=== PATIENT | female | born 1995 | race Caucasian/White ===

== ENCOUNTER → 2016-12-20 | Outpatient (CLI) | payer BC, OTHER ==
--- NOTE | 2016-12-20 11:28 | DIAGNOSTIC IMAGING REPORT ---
RIGHT KNEE 4 OR MORE CLINICAL HISTORY: RIGHT KNEE IT BAND SYNDROME. COMPARISON: None FINDINGS: Alignment of the right knee is anatomic. There is no fracture or suspicious lesion. Joint spaces are preserved. There is a possible right knee joint effusion. IMPRESSION: 1. No osseous abnormality of the right knee. 2. Possible right knee joint effusion. Electronically signed by: Yvan Brito M.D. 12/20/2016 11:26 AM Dictated Date/Time: 12/20/2016 11:26 AM
== END | disposition home or self-care (01) ==
LOC: C.RDSM 10:46
PROVIDERS: ATTEND Internal Medicine
DX: M76.31 Iliotibial band syndrome, right leg (principal)

== ENCOUNTER → 2016-12-31 | Outpatient (CLI) | payer BC, OTHER ==
--- NOTE | 2016-12-31 08:13 | DIAGNOSTIC IMAGING REPORT ---
RIGHT LOWER EXT NONJOINT W/O HISTORY: 21 years-old Female acute posterior lateral leg pain, most pronounced in the region of the hamstring. No reported trauma. COMPARISON: Right knee radiographs 12/20/2016 TECHNIQUE: Multiplanar multisequence MRI of the right femur was obtained without contrast. FINDINGS: The exam is very limited secondary to patient motion. There is a moderate amount of free fluid within the cul-de-sac, likely physiologic. There is a mild amount of edema adjacent to the right greater trochanter, nicely seen on image 18 of the coronal STIR series compatible with greater trochanteric bursitis. No significant right hip degenerative changes. No labral tear is identified, however evaluation is limited secondary to patient motion. There is a small fluid-filled cleft measuring 6 x 5 mm in transverse and AP dimension involving the gluteus medius tendon attachment site as seen on image 19 of series 7 and image 8 of series 9 suggesting low-grade partial thickness tear. There is mild thickening of the common hamstring attachment site without high-grade or full-thickness tear or significant surrounding edema identified compatible with tendinosis. There is no evidence of ischiofemoral impingement. Normal vascularity is seen within the mid femoral shaft without focal bone marrow edema or fracture. No stress response or mass is identified. Physiologic amount of fluid is seen within the knee joint. This exam is not tailored to evaluate the knee ligaments, tendons or menisci. No focal soft tissue collection or mass. Skin marker overlies the region of the distal biceps femoris myotendinous junction which appears intact. No significant edema. IMPRESSION: 1. Skin marker overlies the distal myotendinous junction of the biceps femoris without focal high-grade tear or muscular edema identified. Further evaluation with MRI of the knee may be beneficial if clinically indicated. 2. Low-grade partial tear of the gluteus medius tendon attachment site about the greater trochanter with mild associated reactive edema. 3. No fracture or focal bone marrow edema. 4. Mild tendinosis of the common hamstring attachment site about the ischial tuberosity. 5. Mild free pelvic fluid is likely physiologic. The above report was generated using voice recognition software. It may contain grammatical, syntax or spelling errors. Electronically signed by: Muprhy Saldivar M.D. 12/31/2016 8:11 AM Dictated Date/Time: 12/31/2016 7:53 AM
== END | disposition home or self-care (01) ==
LOC: C.MRI 05:59
PROVIDERS: ATTEND Internal Medicine
DX: M79.604 Pain in right leg (principal)